=== PATIENT | male | born 1980 | race Caucasian/White ===

== ENCOUNTER 2016-11-17 09:52 | Emergency (ER) | payer SELFPAY ==
[~2016-11-17] VITALS: Ht 185.4 cm; Wt 81.6 kg
[~2016-11-17 09:52] MED LIST: Flexeril PO; NOHOMEMEDS; celeXA PO
[2016-11-17 09:55] VITALS: BP 134/74
[2016-11-17] MEDS ORDERED: LIDODERM 5% P1 PATCH TD (10:20)
[2016-11-17] MEDS ORDERED: FLEXERIL10 MG PO (10:20)
[2016-11-17] MEDS ORDERED: PREDNISONE20 MG PO (10:20)
== END 2016-11-17 10:43 | disposition home or self-care (01) ==
LOC: EME 09:52
DX: S39.012A Strain of muscle, fascia and tendon of lower back, initial encounter (principal); X58.XXXA Exposure to other specified factors, initial encounter
CPT/HCPCS: 99281; 99283